=== PATIENT | male | born 1970 ===

== ENCOUNTER 2024-03-21 11:01 | Emergency (ER) | payer BC ==
[2024-03-21 11:25] VITALS: BP 117/75; PULSE 83; RESP 17; TEMP 98.5; BMI 33.6
[2024-03-21] MEDS ORDERED: ACETAMINOPHEN INJECTION 100 ML IVPB ONE (12:08)
[2024-03-21] MEDS: SODIUM CHLORIDE 0.9% 500 ML INFUS.BAG IV ONE (12:24)
[2024-03-21] MEDS: ACETAMINOPHEN 1000 MG/100 ML BAG IVPB ONE (12:25)
[2024-03-21 12:34] LABS: BASO % 0.6 % (0-2.0); EOS % 3.7 % (0-4.5); HEMATOCRIT 45.4 % (35.4-49); HEMOGLOBIN 15.3 GM/dL (11.7-16.9); LYMPH % 38.5 % (8-40); MCH 29.4 pg (25.7-33.7); MCHC 33.6 g/dl (32.0-35.9); MEAN CELL VOLUME 87.3 fl (80-96); MEAN PLT VOLUME 8.3 fl (7.5-11.1); MONO % 6.8 % (3.8-10.2); NEUT % 50.4 % (42.8-82.8); PLATELET COUNT 237 10^3/uL (134-434); RDW 13.3 % (11.9-15.9); WHITE BLOOD COUNT 6.2 K/mm3 (4.0-10.0)
[2024-03-21 12:54] LABS: POTASSIUM 3.8 mmol/L (3.5-5.1)
[2024-03-21 12:57] LABS: ALBUMIN 3.9 g/dl (3.4-5.0); BLOOD UREA NITROGEN 10.4 mg/dL (7-18)
[2024-03-21 13:00] LABS: CREATININE 0.6 mg/dL (0.55-1.3)
[2024-03-21 13:01] LABS: BILIRUBIN,TOTAL 1.8 mg/dL (0.2-1); TOT PROT 6.9 g/dl (6.4-8.2)
== END 2024-03-21 16:22 | disposition home or self-care (01) ==
LOC: JER 11:01
PROC: 3E030NZ Introduction of Analgesics, Hypnotics, Sedatives into Peripheral Vein, Open Approach (ICD-10-PCS; principal; 2024-03-21)
DX: K40.20 Bilateral inguinal hernia, without obstruction or gangrene, not specified as recurrent (principal); R10.32 Left lower quadrant pain
CPT/HCPCS: 36415; 74176-TC; 80053; 82272; 85025; 87040; 99284-25; J0131